=== PATIENT | male | born 1930 | race Caucasian/White ===

== ENCOUNTER 2016-10-27 10:48 | Emergency (ER) | payer MEDICARE, OTHER ==
[~2016-10-27 10:48] MED LIST: HYDROCODON-ACE1 EAC6 PO
== END 2016-10-27 15:10 | disposition home or self-care (01) ==
LOC: ER 10:48
DX: S70.02XA Contusion of left hip, initial encounter (principal); R60.0 Localized edema; Z79.82 Long term (current) use of aspirin; Z79.899 Other long term (current) drug therapy; W19.XXXA Unspecified fall, initial encounter; Y92.009 Unspecified place in unspecified non-institutional (private) residence as the place of occurrence of the external cause
CPT/HCPCS: 36415; 73502-LT; 96374; J1940